=== PATIENT | female | born 1985 | race Caucasian/White ===

== ENCOUNTER 2017-04-25 21:31 | Emergency (ER) | payer OTHER ==
[~2017-04-25] VITALS: Ht 167.6 cm; Wt 55.0 kg
[2017-04-25 21:33] VITALS: Ht 167.6 cm; Wt 55.0 kg
[2017-04-25] MEDS ORDERED: BCPILLS PO (21:42)
[2017-04-25] MEDS ORDERED: LAMO25TA PO (21:42)
[2017-04-25] MEDS ORDERED: VENL75CA PO (21:42)
[2017-04-25] MEDS ORDERED: PROP10TA7 PO (21:42)
[2017-04-25] MEDS ORDERED: XYLOCAINE 1%/SOD BICARB 20 ML VIAL INFIL ONE (22:38)
[2017-04-25 22:56] VITALS: BP 128/71; PULSE 114; TEMP 37; O2SAT 98
--- NOTE | 2017-04-26 00:47 | EMERGENCY ROOM VISIT NOTE ---
ED Visit Note First contact with patient: 22:39 CHIEF COMPLAINT: Finger laceration HISTORY OF PRESENT ILLNESS: This 31 yo patient presents to the emergency department with friend after cutting the left thumb finger on a knife just prior to arrival. The bleeding has not stopped. Denies weakness or numbness of the finger. The patient has full range of motion of the fingers. The patient rates the pain as mild and 2/10. The patient denies any other injuries. The patient's tetanus shot is up to date. REVIEW OF SYSTEMS: A 6 system review of systems was completed with positives and pertinent negatives listed in the HPI. ALLERGIES: None MEDICATIONS: None PMH: None SOCIAL HISTORY: No drug use, tobacco use PHYSICAL EXAM: Vital Signs: Reviewed Nurse's notes, vital signs stable. GENERAL : Pleasant female, in no acute distress, well developed, well nourished. SKIN: There is a 2.6 cm long laceration on the palmar aspect of the left first finger. The edges gape apart with traction. There is no foreign material in the wound and it looks clean. There is bleeding. No deep structures such as tendons , bones, or significant blood vessels are seen in the base of the wound. Extension and flexion of the finger is full and strong. Full range of motion of the wrist and other fingers. Capillary refill less than 2 seconds. Normal sensation to light and sharp touch. EMERGENCY DEPARTMENT COURSE: I examined the patient. Using sterile technique the wound was cleansed with Betadine. 2 ml of 1% buffered lidocaine was used to perform a digital block to anesthetize the patient. The area was sterilely draped. Once the patient was anesthetized, the wound was copiously irrigated under pressure with sterile saline. The wound was explored and there were no deep structures injured. The laceration was repaired using 3 simple interrupted 5-0 nylon sutures. The patient tolerated the procedure well. Hemostasis was achieved. The area was cleaned with sterile saline and dressed with bacitracin ointment and bandage. The patient was discharged home in good condition. DIAGNOSIS: Finger laceration, left thumb DISCHARGE INSTRUCTIONS & TREATMENT: Keep wound clean and dry. Do not allow any crusting or dried blood to accumulate on sutures. If this occurs, use a 1:1 solution of hydrogen peroxide/water on a Q-tip to clean the wound. Use an antibiotic ointment for 3-4 days, then let wound dry. Suture removal in 10-12 days. Return sooner for any signs of infection (increasing redness, swelling, drainage). Ice and elevate for swelling and pain. Ibuprofen 600 mg and Tylenol 500 mg every 6 hrs for pain. Keep covered when in sun until sutures removed then SPF 50 or higher for one year. Vitamin E oil if desired two weeks after suture removal for reduction of scar. Current/Historical Medications Scheduled Control Pills ( Control Pills), 1 TAB PO DAILY Lamotrigine (Lamictal), 1 TAB PO DAILY Propranolol (Inderal), 10 MG PO DAILY Venlafaxine Hcl (Effexor Xr), 1 CAP PO DAILY Allergies Coded Allergies: No Known Allergies (Unverified , 04/25/17) Vital Signs Date Time Temp Pulse Resp B/P (MAP) Pulse Ox O2 Delivery O2 Flow Rate FiO2 04/25/17 22:56 37.0 114 20 128/71 98 04/25/17 22:55 114 20 128/71 98 Room Air 04/25/17 21:33 37.0 125 20 135/86 98 Room Air Departure Information Impression Primary Impression: Laceration of left thumb Dispostion Home / Self-Care Condition GOOD Forms HOME CARE DOCUMENTATION FORM, IMPORTANT VISIT INFORMATION Patient Instructions [facility], ED Laceration All Additional Instructions Keep wound clean and dry. Do not allow any crusting or dried blood to accumulate on sutures. If this occurs, use a 1:1 solution of hydrogen peroxide/ water on a Q-tip to clean the wound. Use an antibiotic ointment for 3-4 days, then let wound dry. Suture removal in 10-12 days. Return sooner for any signs of infection (increasing redness, swelling, drainage). Ice and elevate for swelling and pain. Ibuprofen 600 mg and Tylenol 500 mg every 6 hrs for pain. Keep covered when in sun until sutures removed then SPF 50 or higher for one year. Vitamin E oil if desired two weeks after suture removal for reduction of scar
== END 2017-04-25 22:56 | disposition home or self-care (01) ==
LOC: C.EDB 21:33 → C.EDD 22:56
DX: S61.012A Laceration without foreign body of left thumb without damage to nail, initial encounter (principal); W26.0XXA Contact with knife, initial encounter; Z79.3 Long term (current) use of hormonal contraceptives; Z79.899 Other long term (current) drug therapy